=== PATIENT | female | born 1970 | race Native Hawaiian/Other Pacific Islander ===

== ENCOUNTER 2017-12-15 11:53 | Emergency (ER) | payer SELFPAY ==
[~2017-12-15] VITALS: Ht 157.5 cm; Wt 77.1 kg
[2017-12-15 12:20] LABS: *URINE HCG, QUAL NEGATIVE (NEGATIVE)
[2017-12-15] MEDS ORDERED: NAPROXEN 500 MG TABLET PO ONE (12:30)
[2017-12-15] MEDS ORDERED: NAPROXEN 500 MG TABLET ONE (12:40)
--- NOTE | 2017-12-15 12:49 | NUR ---
MSE COMPLETEED, P[T D/C'D HOME. ACI GIVEN, PT AMBULATED W/O DIFF/TOOK ALL BELONGINGS.
[2017-12-15 12:50] VITALS: BP 140/69
== END 2017-12-15 12:51 | disposition home or self-care (01) ==
LOC: ER 11:53
DX: S20.211A Contusion of right front wall of thorax, initial encounter (principal); S60.222A Contusion of left hand, initial encounter; S53.401A Unspecified sprain of right elbow, initial encounter; S16.1XXA Strain of muscle, fascia and tendon at neck level, initial encounter; S09.90XA Unspecified injury of head, initial encounter; V49.9XXA Car occupant (driver) (passenger) injured in unspecified traffic accident, initial encounter; Y93.89 Activity, other specified; Y92.89 Other specified places as the place of occurrence of the external cause; Y99.8 Other external cause status
CPT/HCPCS: 71045; 84703; 93005; A4663